=== PATIENT | male | born 1985 | race African-American/Black ===

== ENCOUNTER 2021-02-22 11:50 | Emergency (ER) | payer BC, SELFPAY ==
[2021-02-22] VITALS (20 sets, daily range): BP systolic 103–143; BP diastolic 54–91; PULSE 61–95; RESP 11–24; TEMP 36.4; O2SAT 97–100
--- NOTE | ~2021-02-22 | XR_ITS ---
EXAMINATION: XR chest 2V EXAM DATE: 02/22/2021 14:20 INDICATION: Dizziness, chest discomfort. TECHNIQUE: Frontal and lateral projections of the chest obtained and reviewed. There is no prior juan dy for comparison. FINDINGS: The lungs are clear. There are no pleural effusions. The cardiomediastinal silhouette is within normal limits. There is no pneumothorax suspected. The bones and soft tissues are unremarkab le. IMPRESSION: No acute cardiopulmonary findings. Reviewed, dictated and finalized at location A.
--- NOTE | 2021-02-22 11:52 | ECG_ITS ---
Measurements Intervals [place] Rate: 76 P: 50 IL: 187 QRS: 23 QRSD: 89 T: 34 QT: 337 QTc: 380 Interpretive Statements SINUS RHYTHM BASELINE ARTIFACT- I, II, AVR, AVL, AVF NORMAL ECG Electronically Signed On 02-22-2021 12:13:01 CDT by Marcos Dawn D.O.
[2021-02-22 12:17] LABS: Basophils Percent Auto 0.6 % (0.2-1.2); Eosinophils Absolute Auto 0.3 K/mm3 (0-0.3); Eosinophils Percent Auto 3.8 % (0-4.4); Hematocrit 44.9 % (42.0-52.0); Hemoglobin 14.7 g/dL (14.0-18.0); Immature Granulocyte Absolute 0.04 K/mm3 (0.00-0.031); Immature Granulocyte Percent A 0.6 % (0-0.5); Lymphocytes Absolute Auto 1.85 K/mm3 (0.9-3.2); Lymphocytes Percent Auto 28.4 % (18.3-44.2); Mean Corpuscular HGB Conc 32.7 g/dl (32-36); Mean Corpuscular Volume 79.3 fl (80-100); Mean Platelet Volume 11.3 fl (7.4-10.4); Monocytes Absolute Auto 0.6 K/mm3 (0.1-0.6); Monocytes Percent Auto 9.5 % (2.6-8.5); Neutrophils Absolute Auto 3.7 K/mm3 (1.3-6.7); Neutrophils Percent Auto 57.1 % (45.5-73.1); Platelet Count Result 242 k/mm3 (150-375); Red Blood Count 5.66 M/mm3 (4.6-6.20); Red Cell Distribution Width 14.7 % (11.5-14.5); White Blood Count 6.5 K/mm3 (4.5-10.0)
[2021-02-22 12:19] LABS: Add Urine Microscopic? NO; Appearance Urine Clear (Clear); Bilirubin Urine Negative (Negative); Blood Urine Negative (Negative); Color Urine Straw (Yellow); Glucose Urine UA Negative (Negative); Ketones Urine Negative (Negative); Leukocyte Esterase Ur Negative LEU/UL (Negative); Nitrate Urine Negative (Negative); Protein Urine Negative (Negative); Specific Grav Ur 1.013 (1.001-1.035); Urobilinogen Urine Negative mg/dL (<2.0)
[2021-02-22 14:08] LABS: Glucose Point of Care 108 mg/dl (65-105)
[2021-02-22 14:47] LABS: Alanine Aminotransferase 25 U/L (4-50); Albumin Level 4.2 g/dL (3.5-5.1); Alkaline Phosphatase 68 U/L (38-126); Anion Gap 7 mmol/L (8-16); Aspartate Amino Transferase 35 U/L (17-59); Bilirubin,Total 0.3 mg/dL (0.2-1.3); Blood Urea Nitrogen 14 mg/dL (9-20); Calcium 9.6 mg/dL (8.4-10.2); Carbon Dioxide 29 mmol/L (22-30); Chloride 103 mmol/L (98-107); Estimated CRCL calculation 116 ml/min; Estimated Glomerular Filt Rate > 60; Glucose 90 mg/dL (75-110); Potassium 4.5 mmol/L (3.4-5.0); Sodium 139 mmol/L (137-145)
--- NOTE | 2021-02-22 14:47 | ED.DIZZY ---
HPI - Dizziness General Chief Complaint: Dizziness Stated Complaint: elevated BS, dizzy Time Seen by Provider: 02/22/21 13:53 Source: patient Mode of arrival: ambulatory Limitations: no limitations History of Present Illness HPI Narrative: This is a 35-year-old male that presents to the emergency department for lightheadedness since yesterday. Reports he took his blood sugar on his mother's monitor and it was 120. Reports he has had increased urination and some discomfort with urination over the last couple of weeks. Denies any rashes or lesions. Would like to be tested for STDs. Denies fever, chest pain, shortness of breath, or lower extremity edema. Related Data Allergies Allergy/AdvReac Type Severity Reaction Status Date / Time No Known Allergies Allergy Verified 02/22/21 13:39 Review of Systems Review of Systems: Narrative: CONSTITUTIONAL: Denies fever CARDIOVASCULAR: Denies chest pain RESPIRATORY: Denies dyspnea. GENITOURINARY: Reports dysuria. Denies hematuria. SKIN: Denies rash All systems reviewed & are unremarkable except as noted in HPI and below [facility] Past Medical History Medical History (Updated 02/22/21 @ 16:36 by Toshia Reddy PA-C) No active medical problems Social History Social History (Updated 02/22/21 @ 14:50 by Toshia Reddy PA-C) Substance use: never Exam Narrative: Exam Narrative: GENERAL: Well-appearing, obese, and in no acute distress. HEAD: Normocephalic, atraumatic. EYES: PERRLA and EOMI. ENT: Nares clear, no rhinorrhea or epistaxis. Mucous membranes moist. Oropharynx without tonsillar hypertrophy exudate or other lesions. Bilateral TMs pearly scott non-bulging NECK: Supple. No adenopathy or masses. CHEST: Clear to auscultation. No respiratory distress. No wheezes rales or rhonchi HEART: Regular rate and rhythm. No murmur heard. Normal peripheral pulses. EXTREMITIES: Normal range of motion. No edema. SKIN: Warm, dry, no rash. NEURO: No focal deficits. Alert and oriented x3. PSYCH: Normal mood and affect Course Vital Signs Vital signs: Vital Signs Temperature 97.5 F L 02/22/21 11:52 Pulse Rate 85 02/22/21 11:52 Respiratory Rate 18 02/22/21 11:52 Blood Pressure 137/85 02/22/21 11:52 Pulse Oximetry 98 02/22/21 11:52 Temperature 97.5 F L 02/22/21 11:52 Pulse Rate 71 02/22/21 16:22 Respiratory Rate 13 02/22/21 15:15 Blood Pressure 108/54 L 02/22/21 16:22 Pulse Oximetry 100 02/22/21 15:15 MDM - Dizziness MDM Narrative Medical decision making narrative: Patient presents to the emergency department for feeling of lightheadedness since yesterday. He is afebrile and nontoxic-appearing. Vitals are stable. CBC and metabolic panel without concerning findings. Chest x-ray without acute cardiopulmonary abnormality. EKG is without concerning changes. Patient reports improvement in his symptoms with IV fluids. Was also reporting burning with urination and frequency. UA without evidence of infection. I did send urine for chlamydia, gonorrhea and trichomonas. Patient would like to be presumptively treated. Reported family history of diabetes. His hemoglobin A1c is mildly elevated at 5.8. Patient was instructed on his increased risk of diabetes and importance of diet changes and exercise. Patient is stable and felt appropriate for further outpatient evaluation. He is to follow-up with primary care doctor. He was given warnings to return to the ER Lab Data Attestation: I reviewed the patient's lab results. Result diagrams: 02/22/21 12:01 02/22/21 14:14 Labs: Lab Results 02/22/21 02/22/21 02/22/21 Range/Units 11:58 12:01 12:01 WBC 6.5 (4.5-10.0) K/mm3 RBC 5.66 (4.6-6.20) M/mm3 Hgb 14.7 (14.0-18.0) g/dL Hct 44.9 (42.0-52.0) % MCV 79.3 L (80-100) fl MCH 26.0 (26-34) pg MCHC 32.7 (32-36) g/dl RDW 14.7 H (11.5-14.5) % Plt Count 242 (150-375) k/mm3 MPV 11.3 H
[2021-02-22] MEDS: SODIUM CHLORIDE 0.9% IV 1,000 ML 999 ML IV CONT (14:52)
[2021-02-22 15:16] LABS: Hemoglobin A1C 5.8 % (<5.7)
[2021-02-22] MEDS: metroNIDAZOLE 250 MG TABLET 500 MG PO (17:01)
[2021-02-22] MEDS: DOXYCYCLINE HYCLATE 100 MG TABLET PO (17:01)
[2021-02-22] MEDS: cefTRIAXone 1 GM VIAL 0.5 GM IM (17:02)
--- NOTE | 2021-02-22 17:07 | PC.NURSE ---
Lidocaine used for Rocephin reconstitution.
== END 2021-02-22 17:17 | disposition home or self-care (01) ==
PROVIDERS: Physician Assistant; Emergency Provider Emergency Medicine; PCP Family Medicine Adolescent Medicine
DX: R42 Dizziness and giddiness (principal); Z11.3 Encounter for screening for infections with a predominantly sexual mode of transmission
CPT/HCPCS: 36415; 71046; 80053; 81003; 82948; 83036; 85025; 87491; 87591; 87661; 93005; 96360; 96372; 99283; A9270; J0696; J7030